=== PATIENT | female | born 1970 | race Asian ===

== ENCOUNTER 2021-11-10 18:24 | Emergency (ER) | payer OTHER ==
[~2021-11-10] VITALS: Ht 170.2 cm; Wt 75.0 kg
[~2021-11-10 18:24] MED LIST: ATEN-187 PO; HIGH CHOLESTEROL; HYDR-4808 PO; PARO30TA76 PO
[2021-11-10] MEDS ORDERED: BENZOCAINE 20% 50 MCG/SPRAY 57 GM TP ONE (19:45)
[2021-11-10 20:32] LABS: COVID AG,FIA SOURCE NASOPHARYNGEAL
[2021-11-10 20:34] LABS: BASOPHILS % (AUTO) 0.8 % (0.0-2.0); HEMATOCRIT 37.4 % (36-46); HEMOGLOBIN 12.7 g/dL (12.0-16.0); LYMPHOCYTES # (AUTO) 4.2 K/uL (1.0-4.8); LYMPHOCYTES % (AUTO) 40.2 % (22.0-44.0); MEAN CORPUSCULAR HEMOGLOBIN 30.1 pg (26.0-34.0); MEAN CORPUSCULAR HGB CONC 33.9 G/dL (31.0-37.0); MEAN CORPUSCULAR VOLUME 89 fL (80-100); MONOCYTES # (AUTO) 0.7 K/uL (0.1-1.0); MONOCYTES % (AUTO) 6.4 % (2.0-9.0); NEUTROPHILS # (AUTO) 5.1 K/uL (1.8-7.7); NEUTROPHILS % (AUTO) 48.6 % (40.0-70.0); PLATELET COUNT (AUTO) 320 K/uL (150-450); RED BLOOD CELL COUNT(AUTO) 4.22 MIL/uL (4.00-5.20); RED CELL DISTRIBUTION WIDTH 13.7 % (11.5-14.5)
[2021-11-10 20:44] LABS: ANION GAP 12 mmol/L (8-16); CALCIUM, TOTAL 9.8 mg/dL (8.8-10.5); CARBON DIOXIDE 27 mmol/L (22-29); CHLORIDE 103 mmol/L (98-107); CREATININE 0.87 mg/dL (0.60-1.30); GLOMERULAR FILTR. RATE CALC > 60 mL/min (>60); GLUCOSE,RANDOM 140 mg/dL (70-110); POTASSIUM 3.8 mmol/L (3.5-5.1); SODIUM SERUM 142 mmol/L (136-145); UREA NITROGEN, BLOOD 12 mg/dL (7-18)
[2021-11-10 20:49] LABS: ALANINE AMINOTRANSFERASE 46 U/L (12-78); ALBUMIN 4.1 g/dL (3.4-5.0); ALKALINE PHOSPHATASE 108 U/L (46-116); ASPARTATE AMINOTRANSFERASE 31 U/L (15-37); BILIRUBIN,TOTAL 0.4 mg/dL (0.1-1.0); TOTAL PROTEIN, SERUM 8.3 g/dL (6.4-8.2)
[2021-11-10 22:10] VITALS: BP 153/92
== END 2021-11-10 22:57 | disposition short-term general hospital (02) ==
LOC: EMS 18:24
DX: T17.228A Food in pharynx causing other injury, initial encounter (principal); F41.9 Anxiety disorder, unspecified; F32.A Depression, unspecified; E78.00 Pure hypercholesterolemia, unspecified; I10 Essential (primary) hypertension; Z20.822 Contact with and (suspected) exposure to COVID-19; X58.XXXA Exposure to other specified factors, initial encounter; Y93.89 Activity, other specified; Y92.89 Other specified places as the place of occurrence of the external cause; Y99.8 Other external cause status
CPT/HCPCS: 70360; 80053; 85025; 99285

== ENCOUNTER 2022-12-01 19:58 | Emergency (ER) | payer OTHER ==
[~2022-12-01] VITALS: Ht 170.2 cm; Wt 84.1 kg
[2022-12-01 20:23] VITALS: BP 154/89
== END 2022-12-01 22:27 | disposition left against medical advice (07) ==
LOC: EMS 19:58
DX: Z53.21 Procedure and treatment not carried out due to patient leaving prior to being seen by health care provider (principal)
CPT/HCPCS: 99281; Z7502

== ENCOUNTER 2023-04-05 01:23 | Emergency (ER) | payer OTHER ==
[~2023-04-05] VITALS: Ht 165.1 cm; Wt 53.2 kg
[2023-04-05 02:21] VITALS: BP 135/77; PULSE 70; RESP 16
[2023-04-05] MEDS ORDERED: DEXAMETHASONE SOD PHOS 4 MG/ML 5 ML VIAL IM ONE (02:30)
[2023-04-05] MEDS ORDERED: DiphenhydrAMINE HCL 25 MG CAPSULE PO ONE (02:30)
[2023-04-05] MEDS ORDERED: DIPH25CA85 PO (04:06)
[2023-04-05] MEDS ORDERED: PRED-554 PO (04:07)
== END 2023-04-05 04:30 | disposition home or self-care (01) ==
LOC: EDBD 01:30 → MERGE 01:30 → EMS 01:30
DX: T78.40XA Allergy, unspecified, initial encounter (principal); F41.9 Anxiety disorder, unspecified; E78.00 Pure hypercholesterolemia, unspecified; I10 Essential (primary) hypertension; X58.XXXA Exposure to other specified factors, initial encounter
CPT/HCPCS: 99283; 96372; J1100

== ENCOUNTER 2024-10-20 11:07 | Emergency (ER) | payer OTHER ==
[~2024-10-20] VITALS: Ht 165.1 cm; Wt 77.3 kg
[~2024-10-20 11:07] MED LIST changes: +DIPH25CA85 PO; +PRED-554 PO
[2024-10-20 11:13] VITALS: TEMP 97.7
[2024-10-20 11:46] VITALS: BP 133/72; PULSE 64; RESP 21; O2SAT 100
[2024-10-20] MEDS: LORazepam 1 MG TABLET PO ONE (12:31)
[2024-10-20 12:52] LABS: TROPONIN I-HIGH SENSITIVITY 8 ng/L (<51)
[2024-10-20] MEDS ORDERED: LORA1TAB25 PO (13:22)
== END 2024-10-20 13:49 | disposition home or self-care (01) ==
LOC: EMS 12:00
DX: F41.0 Panic disorder [episodic paroxysmal anxiety] (principal); R00.2 Palpitations; I10 Essential (primary) hypertension; E78.00 Pure hypercholesterolemia, unspecified; Z79.52 Long term (current) use of systemic steroids; Z79.899 Other long term (current) drug therapy
CPT/HCPCS: 84484; 93005; 99284

== ENCOUNTER 2024-10-24 13:30 | Emergency (ER) | payer OTHER ==
[~2024-10-24] VITALS: Ht 165.1 cm; Wt 75.0 kg
[~2024-10-24 13:30] MED LIST changes: +LORA1TAB25 PO
[2024-10-24 13:45] VITALS: BP 163/83; PULSE 74; RESP 16; TEMP 97.4; O2SAT 98
[2024-10-24] MEDS: LORazepam 1 MG TABLET PO ONE (14:10)
[2024-10-27] MEDS ORDERED: METO25 PO ×2 (17:46→20:13)
[2024-10-27] MEDS ORDERED: ATEN-73 PO (17:46)
[2024-10-27] MEDS ORDERED: ATOR20TA65 PO (17:46)
[2024-10-27] MEDS ORDERED: METF-446 PO (17:46)
[2024-10-27] MEDS ORDERED: CHOL200074 PO (17:46)
[2024-10-27] MEDS ORDERED: GLIP5TAB15 PO (17:46)
[2024-10-27] MEDS ORDERED: LOSA100T59 PO (17:46)
[2024-10-27] MEDS ORDERED: PARO30TA60 PO (17:47)
== END 2024-10-24 14:31 | disposition home or self-care (01) ==
LOC: EMS 13:31
DX: F41.0 Panic disorder [episodic paroxysmal anxiety] (principal); R06.4 Hyperventilation; I10 Essential (primary) hypertension; E78.00 Pure hypercholesterolemia, unspecified; Z79.52 Long term (current) use of systemic steroids; Z79.899 Other long term (current) drug therapy
CPT/HCPCS: 99283

== ENCOUNTER → 2024-10-27 | Emergency (ER) | payer OTHER ==
[~2024-10-27] VITALS: Ht 165.1 cm; Wt 77.3 kg
[~2024-10-27] MED LIST changes: +ATEN-73 PO; +ATOR20TA65 PO; +CHOL200074 PO; +GLIP5TAB15 PO; +LOSA100T59 PO; +METF-446 PO; +METO25 PO; +PARO30TA60 PO
[2024-10-27 18:41] LABS: BASOPHILS % (AUTO) 0.8 % (0.0-2.0); EOSINOPHILS % (AUTO) 1.1 % (1.0-6.0); HEMATOCRIT 40.7 % (36-46); HEMOGLOBIN 13.6 g/dL (12.0-16.0); LYMPHOCYTES # (AUTO) 3.3 K/uL (1.0-4.8); LYMPHOCYTES % (AUTO) 31.5 % (22.0-44.0); MEAN CORPUSCULAR HEMOGLOBIN 30.4 pg (26.0-34.0); MEAN CORPUSCULAR HGB CONC 33.3 G/dL (31.0-37.0); MEAN CORPUSCULAR VOLUME 91 fL (80-100); MONOCYTES # (AUTO) 0.5 K/uL (0.1-1.0); MONOCYTES % (AUTO) 4.9 % (2.0-9.0); NEUTROPHILS # (AUTO) 6.4 K/uL (1.8-7.7); NEUTROPHILS % (AUTO) 61.7 % (40.0-70.0); PLATELET COUNT (AUTO) 319 K/uL (150-450); RED BLOOD CELL COUNT(AUTO) 4.46 MIL/uL (4.00-5.20); RED CELL DISTRIBUTION WIDTH 14.3 % (11.5-14.5); WHITE BLOOD COUNT (AUTO) 10.4 K/uL (4.5-11.0)
[2024-10-27 18:49] LABS: ANION GAP 15 mmol/L (8-16); CALCIUM, TOTAL 9.8 mg/dL (8.8-10.5); CARBON DIOXIDE 23 mmol/L (22-29); CHLORIDE 103 mmol/L (98-107); CREATININE 0.83 mg/dL (0.60-1.30); GLOMERULAR FILTR. RATE CALC > 60 mL/min (>60); GLUCOSE,RANDOM 113 mg/dL (70-110); SODIUM SERUM 141 mmol/L (136-145); UREA NITROGEN, BLOOD 16 mg/dL (7-18)
[2024-10-27 18:57] LABS: TROPONIN I-HIGH SENSITIVITY 6 ng/L (<51)
[2024-10-27 20:13] VITALS: BP 126/74; PULSE 65; RESP 16; TEMP 97.7; O2SAT 99
[2024-10-27] MEDS: LORazepam 1 MG TABLET PO ONE (20:16)
== END | disposition home or self-care (01) ==
LOC: EMS 17:17
DX: R00.2 Palpitations (principal); R07.89 Other chest pain; F41.0 Panic disorder [episodic paroxysmal anxiety]; E11.9 Type 2 diabetes mellitus without complications; I10 Essential (primary) hypertension; E78.00 Pure hypercholesterolemia, unspecified; Z79.84 Long term (current) use of oral hypoglycemic drugs; Z79.899 Other long term (current) drug therapy
CPT/HCPCS: 80048; 84484; 85025; 93005; 99284

== ENCOUNTER → 2024-11-08 | Emergency (ER) | payer OTHER ==
[~2024-11-08] VITALS: Ht 167.6 cm; Wt 72.7 kg
[~2024-11-08] MED LIST changes: -ATEN-187 PO; -DIPH25CA85 PO; -HIGH CHOLESTEROL; -PARO30TA76 PO; -PRED-554 PO
[2024-11-08 01:46] VITALS: BP 143/79; PULSE 93; RESP 18; TEMP 98.2; O2SAT 100
[2024-11-08 02:06] LABS: GLUCOMETER DEV NAME(LOC) ERT.6; GLUCOSE,POINT OF CARE 191 MG/DL (70-110)
== END | disposition left against medical advice (07) ==
LOC: EMS 01:36
DX: R73.9 Hyperglycemia, unspecified (principal); Z53.21 Procedure and treatment not carried out due to patient leaving prior to being seen by health care provider
CPT/HCPCS: 82962

== ENCOUNTER 2024-11-15 20:28 | Emergency (ER) | payer OTHER ==
[~2024-11-15] VITALS: Ht 162.6 cm; Wt 61.4 kg
[2024-11-15 21:18] VITALS: TEMP 98.7
[2024-11-15] MEDS ORDERED: HYDR-4808 PO (22:11)
[2024-11-15] MEDS: LORazepam 1 MG TABLET PO ONE (22:19)
[2024-11-15 22:25] VITALS: BP 138/71; PULSE 66; RESP 16; O2SAT 98
== END 2024-11-15 22:30 | disposition home or self-care (01) ==
LOC: EMS 20:28
DX: F41.0 Panic disorder [episodic paroxysmal anxiety] (principal); I10 Essential (primary) hypertension; E11.9 Type 2 diabetes mellitus without complications; F32.A Depression, unspecified; Z79.84 Long term (current) use of oral hypoglycemic drugs; Z79.899 Other long term (current) drug therapy
CPT/HCPCS: 99283

== ENCOUNTER 2024-11-16 23:52 | Emergency (ER) | payer OTHER ==
[~2024-11-16] VITALS: Ht 165.1 cm; Wt 68.2 kg
[2024-11-17 00:11] VITALS: TEMP 97.5
[2024-11-17 00:39] VITALS: BP 152/81; PULSE 92; RESP 18; O2SAT 100
== END 2024-11-17 01:41 | disposition home or self-care (01) ==
LOC: EMS 11-17 00:05
DX: F41.9 Anxiety disorder, unspecified (principal); E11.9 Type 2 diabetes mellitus without complications; I10 Essential (primary) hypertension; F32.A Depression, unspecified; Z79.84 Long term (current) use of oral hypoglycemic drugs; Z79.899 Other long term (current) drug therapy
CPT/HCPCS: 99281; Z7502

== ENCOUNTER 2024-12-10 20:19 | Emergency (ER) | payer OTHER ==
[~2024-12-10] VITALS: Ht 165.1 cm; Wt 68.2 kg
[~2024-12-10 20:19] MED LIST changes: -ATEN-73 PO; -GLIP5TAB15 PO; -HYDR-4808 PO; -LORA1TAB25 PO
[2024-12-10 20:20] VITALS: BP 110/60; PULSE 74; RESP 18; TEMP 98.1; O2SAT 100
== END 2024-12-10 23:50 | disposition left against medical advice (07) ==
LOC: EMS 20:19
DX: F41.9 Anxiety disorder, unspecified (principal); Z53.21 Procedure and treatment not carried out due to patient leaving prior to being seen by health care provider

== ENCOUNTER 2024-12-13 00:48 | Emergency (ER) | payer OTHER ==
[~2024-12-13] VITALS: Ht 167.6 cm; Wt 75.0 kg
[2024-12-13 00:50] VITALS: BP 101/64; PULSE 64; RESP 16; TEMP 98.1; O2SAT 100
== END 2024-12-13 04:07 | disposition left against medical advice (07) ==
LOC: EMS 00:49
DX: F41.9 Anxiety disorder, unspecified (principal); Z53.21 Procedure and treatment not carried out due to patient leaving prior to being seen by health care provider

== ENCOUNTER 2025-02-16 13:06 | Emergency (ER) | payer OTHER ==
[~2025-02-16] VITALS: Ht 165.1 cm; Wt 72.7 kg
[2025-02-16 15:16] VITALS: BP 159/74; PULSE 78; RESP 16; TEMP 97.5; O2SAT 98
== END 2025-02-16 15:45 | disposition home or self-care (01) ==
LOC: EMS 13:06
DX: M79.89 Other specified soft tissue disorders (principal); F41.9 Anxiety disorder, unspecified; E11.9 Type 2 diabetes mellitus without complications; F32.A Depression, unspecified; I10 Essential (primary) hypertension; Z79.899 Other long term (current) drug therapy
CPT/HCPCS: 93971; 99284; Z7502

== ENCOUNTER 2025-03-25 22:54 | Emergency (ER) | payer OTHER ==
[~2025-03-25] VITALS: Ht 165.1 cm; Wt 72.7 kg
[2025-03-25 23:02] VITALS: BP 161/78; PULSE 68; RESP 16; TEMP 97.5; O2SAT 99
== END 2025-03-26 02:11 | disposition home or self-care (01) ==
LOC: EMS 22:56
DX: F41.9 Anxiety disorder, unspecified (principal); F32.A Depression, unspecified; E11.9 Type 2 diabetes mellitus without complications; R11.0 Nausea; R42 Dizziness and giddiness; I10 Essential (primary) hypertension; Z79.899 Other long term (current) drug therapy; Z79.84 Long term (current) use of oral hypoglycemic drugs
CPT/HCPCS: 82962; 93005; 99283

== ENCOUNTER 2025-05-03 04:49 | Emergency (ER) | payer OTHER ==
[~2025-05-03] VITALS: Ht 165.1 cm; Wt 72.7 kg
[2025-05-03 05:00] VITALS: TEMP 97.9
[2025-05-03 06:37] LABS: PLATELET COUNT (AUTO) 293 K/uL (150-450); RED BLOOD CELL COUNT(AUTO) 4.40 MIL/uL (4.00-5.20); RED CELL DISTRIBUTION WIDTH 14.1 % (11.5-14.5); WHITE BLOOD COUNT (AUTO) 7.5 K/uL (4.5-11.0)
[2025-05-03 06:39] VITALS: BP 138/77; PULSE 77; RESP 18; O2SAT 98
[2025-05-03 06:46] LABS: CALCIUM, TOTAL 9.4 mg/dL (8.8-10.5); CREATININE 0.64 mg/dL (0.60-1.30); GLOMERULAR FILTR. RATE CALC > 60 mL/min (>60); GLUCOSE,RANDOM 172 mg/dL (70-110); SODIUM SERUM 140 mmol/L (136-145); UREA NITROGEN, BLOOD 11 mg/dL (7-18)
[2025-05-03 06:57] LABS: TROPONIN I-HIGH SENSITIVITY 4 ng/L (<51)
== END 2025-05-03 08:09 | disposition home or self-care (01) ==
LOC: EMS 04:49
DX: R00.2 Palpitations (principal); F41.9 Anxiety disorder, unspecified; E11.9 Type 2 diabetes mellitus without complications; F32.A Depression, unspecified; I10 Essential (primary) hypertension; Z79.84 Long term (current) use of oral hypoglycemic drugs; Z79.899 Other long term (current) drug therapy
CPT/HCPCS: 80048; 84484; 85025; 93005; 99284

== ENCOUNTER 2025-05-20 14:33 | Emergency (ER) | payer OTHER ==
[~2025-05-20] VITALS: Ht 165.1 cm; Wt 72.7 kg
[2025-05-20 15:05] VITALS: BP 147/71; PULSE 78; RESP 18; TEMP 97.9; O2SAT 99
[2025-05-20 15:26] LABS: PLATELET COUNT (AUTO) 293 K/uL (150-450); RED BLOOD CELL COUNT(AUTO) 4.56 MIL/uL (4.00-5.20); RED CELL DISTRIBUTION WIDTH 14.1 % (11.5-14.5); WHITE BLOOD COUNT (AUTO) 8.5 K/uL (4.5-11.0)
[2025-05-20 15:31] LABS: CALCIUM, TOTAL 9.5 mg/dL (8.8-10.5); CREATININE 0.84 mg/dL (0.60-1.30); GLOMERULAR FILTR. RATE CALC > 60 mL/min (>60); GLUCOSE,RANDOM 122 mg/dL (70-110); SODIUM SERUM 138 mmol/L (136-145); UREA NITROGEN, BLOOD 14 mg/dL (7-18)
[2025-05-20 15:39] LABS: TROPONIN I-HIGH SENSITIVITY 4 ng/L (<51)
== END 2025-05-20 16:10 | disposition home or self-care (01) ==
LOC: EMS 14:33
DX: R00.2 Palpitations (principal); E11.9 Type 2 diabetes mellitus without complications; F32.A Depression, unspecified; F41.9 Anxiety disorder, unspecified; I10 Essential (primary) hypertension; Z79.899 Other long term (current) drug therapy
CPT/HCPCS: 80048; 84484; 85025; 93005; 99284

== ENCOUNTER 2025-05-28 13:44 | Emergency (ER) | payer OTHER ==
[~2025-05-28] VITALS: Ht 165.1 cm; Wt 72.7 kg
[2025-05-28] MEDS ORDERED: HYDR-4808 PO (13:58)
[2025-05-28] MEDS ORDERED: GLIP5TAB16 PO (13:58)
[2025-05-28] MEDS ORDERED: BUPR-50 PO (13:58)
[2025-05-28 14:16] LABS: GLUCOMETER DEV NAME(LOC) ERT.7; GLUCOSE,POINT OF CARE 272 MG/DL (70-110)
[2025-05-28 15:51] LABS: GLUCOMETER DEV NAME(LOC) ER.7; GLUCOSE,POINT OF CARE 188 MG/DL (70-110)
[2025-05-28 15:54] VITALS: BP 136/68; PULSE 98; RESP 20; TEMP 98.2; O2SAT 98
== END 2025-05-28 16:11 | disposition home or self-care (01) ==
LOC: EMS 13:50
DX: E11.65 Type 2 diabetes mellitus with hyperglycemia (principal); F41.9 Anxiety disorder, unspecified; F32.A Depression, unspecified; I10 Essential (primary) hypertension; Z79.84 Long term (current) use of oral hypoglycemic drugs; Z79.899 Other long term (current) drug therapy
CPT/HCPCS: 82962; 99282

== ENCOUNTER 2025-06-04 12:55 | Emergency (ER) | payer OTHER ==
[~2025-06-04] VITALS: Ht 165.1 cm; Wt 77.3 kg
[~2025-06-04 12:55] MED LIST changes: +BUPR-50 PO; +GLIP5TAB16 PO; +HYDR-4808 PO
[2025-06-04 13:04] VITALS: TEMP 98.6
[2025-06-04 14:44] LABS: PLATELET COUNT (AUTO) 318 K/uL (150-450); RED BLOOD CELL COUNT(AUTO) 4.70 MIL/uL (4.00-5.20); RED CELL DISTRIBUTION WIDTH 14.3 % (11.5-14.5); WHITE BLOOD COUNT (AUTO) 9.5 K/uL (4.5-11.0)
[2025-06-04 14:49] LABS: CALCIUM, TOTAL 10.0 mg/dL (8.8-10.5); CREATININE 0.84 mg/dL (0.60-1.30); GLOMERULAR FILTR. RATE CALC > 60 mL/min (>60); GLUCOSE,RANDOM 113 mg/dL (70-110); SODIUM SERUM 141 mmol/L (136-145); UREA NITROGEN, BLOOD 12 mg/dL (7-18)
[2025-06-04 15:58] VITALS: BP 137/88; PULSE 80; RESP 18; O2SAT 99
== END 2025-06-04 15:59 | disposition home or self-care (01) ==
LOC: EMS 12:57
DX: R00.2 Palpitations (principal); F41.9 Anxiety disorder, unspecified; E11.9 Type 2 diabetes mellitus without complications; F32.A Depression, unspecified; I10 Essential (primary) hypertension; R25.2 Cramp and spasm; Z79.899 Other long term (current) drug therapy
CPT/HCPCS: 80048; 82962; 83735; 85025; 93005; 99284

== ENCOUNTER 2025-06-12 16:49 | Emergency (ER) | payer OTHER ==
[~2025-06-12] VITALS: Ht 165.1 cm; Wt 72.7 kg
[2025-06-12 17:10] VITALS: TEMP 97.9
[2025-06-12 18:34] LABS: PLATELET COUNT (AUTO) 265 K/uL (150-450); RED BLOOD CELL COUNT(AUTO) 4.24 MIL/uL (4.00-5.20); RED CELL DISTRIBUTION WIDTH 14.2 % (11.5-14.5); WHITE BLOOD COUNT (AUTO) 8.7 K/uL (4.5-11.0)
[2025-06-12 18:41] LABS: CALCIUM, TOTAL 9.2 mg/dL (8.8-10.5); CREATININE 0.82 mg/dL (0.60-1.30); GLOMERULAR FILTR. RATE CALC > 60 mL/min (>60); GLUCOSE,RANDOM 124 mg/dL (70-110); SODIUM SERUM 144 mmol/L (136-145); UREA NITROGEN, BLOOD 13 mg/dL (7-18)
[2025-06-12 21:04] LABS: TROPONIN I-HIGH SENSITIVITY 6 ng/L (<51)
[2025-06-12 22:43] LABS: APPEARANCE,URINE CLEAR (CLEAR); GLUCOSE, URINE (UA) NEGATIVE (NEGATIVE); LEUKOCYTE ESTERASE ,URINE NEGATIVE (NEGATIVE); NITRATE,URINE NEGATIVE (NEGATIVE); OCCULT BLOOD,URINE NEGATIVE (NEGATIVE); SPECIFIC GRAVITIY, URINE 1.007 (1.003-1.030)
[2025-06-12 23:09] VITALS: BP 142/77; PULSE 62; RESP 15; O2SAT 98
== END 2025-06-12 23:10 | disposition home or self-care (01) ==
LOC: EMS 17:02
DX: F41.9 Anxiety disorder, unspecified (principal); E11.9 Type 2 diabetes mellitus without complications; F32.A Depression, unspecified; I10 Essential (primary) hypertension; Z79.899 Other long term (current) drug therapy
CPT/HCPCS: 71045; 80048; 81003; 83880; 84484; 85025; 93005; 99285; 36415-L1; 36415-TC

== ENCOUNTER 2025-06-18 10:15 | Emergency (ER) | payer OTHER ==
[~2025-06-18] VITALS: Ht 165.1 cm; Wt 77.3 kg
[2025-06-18 10:46] VITALS: TEMP 97.5
[2025-06-18 11:10] LABS: GLUCOMETER DEV NAME(LOC) ERT.7; GLUCOSE,POINT OF CARE 134 MG/DL (70-110)
[2025-06-18 11:26] LABS: PLATELET COUNT (AUTO) 282 K/uL (150-450); RED BLOOD CELL COUNT(AUTO) 4.35 MIL/uL (4.00-5.20); RED CELL DISTRIBUTION WIDTH 14.2 % (11.5-14.5); WHITE BLOOD COUNT (AUTO) 7.3 K/uL (4.5-11.0)
[2025-06-18 11:29] LABS: CALCIUM, TOTAL 9.5 mg/dL (8.8-10.5); CREATININE 0.75 mg/dL (0.60-1.30); GLOMERULAR FILTR. RATE CALC > 60 mL/min (>60); GLUCOSE,RANDOM 152 mg/dL (70-110); SODIUM SERUM 138 mmol/L (136-145); UREA NITROGEN, BLOOD 12 mg/dL (7-18)
[2025-06-18 11:40] LABS: TROPONIN I-HIGH SENSITIVITY 5 ng/L (<51)
[2025-06-18 12:25] VITALS: BP 141/75; PULSE 74; RESP 18; O2SAT 100
[2025-06-24] MEDS ORDERED: [UNRECOGNIZED DRUG - CODE] (03:28)
[2025-06-24] MEDS ORDERED: [UNRECOGNIZED DRUG - CODE] (03:28)
== END 2025-06-18 12:28 | disposition home or self-care (01) ==
LOC: EMS 10:19
DX: F41.9 Anxiety disorder, unspecified (principal); F32.A Depression, unspecified; E11.9 Type 2 diabetes mellitus without complications; E78.00 Pure hypercholesterolemia, unspecified; I10 Essential (primary) hypertension; Z79.899 Other long term (current) drug therapy
CPT/HCPCS: 80048; 82962; 84484; 85025; 93005; 99284

== ENCOUNTER 2025-06-21 15:31 | Emergency (ER) | payer OTHER ==
[~2025-06-21] VITALS: Ht 162.6 cm; Wt 70.5 kg
[~2025-06-21 15:31] MED LIST changes: -GLIP5TAB16 PO
[2025-06-21 15:40] VITALS: TEMP 98.2
[2025-06-21] MEDS ORDERED: HYDR-4808 PO (16:26)
[2025-06-21] MEDS ORDERED: LORA1TAB25 PO (16:26)
[2025-06-21 16:36] VITALS: BP 141/74; PULSE 100; RESP 20; O2SAT 99
[2025-06-24] MEDS ORDERED: [UNRECOGNIZED DRUG - CODE] (03:28)
[2025-06-24] MEDS ORDERED: [UNRECOGNIZED DRUG - CODE] (03:28)
== END 2025-06-21 16:45 | disposition home or self-care (01) ==
LOC: EMS 15:31
DX: F41.9 Anxiety disorder, unspecified (principal); E11.9 Type 2 diabetes mellitus without complications; E78.00 Pure hypercholesterolemia, unspecified; F32.A Depression, unspecified; I10 Essential (primary) hypertension; Z79.899 Other long term (current) drug therapy
CPT/HCPCS: 82962; 99283